=== PATIENT | male | born 1990 | race Caucasian/White ===

== ENCOUNTER 2024-11-18 06:38 | Day surgery (SDC) | payer OTHER ==
[2024-11-18] MEDS: Lactated Ringers 1,000 ML IV SCH (06:59)
[2024-11-18 07:07] LABS: PLATELET COUNT,PLT 202.0 K/uL (130-375); RED BLOOD CELL COUNT 5.08 M/uL (4.14-5.76); WHITE BLOOD CELL COUNT,WBC 4.3 K/uL (3.2-11.0)
[2024-11-18] MEDS ORDERED: Propofol 200 MG/20 ML SDV ONE (07:17)
[2024-11-18] MEDS ORDERED: Glycopyrrolate 0.2 MG/ML 5 ML MDV ONE (07:17)
[2024-11-18] MEDS ORDERED: fentaNYL 250 MCG/5 ML SDV ONE (07:17)
[2024-11-18] MEDS ORDERED: Dexamethasone 4 MG/ML SDV ONE (07:17)
[2024-11-18] MEDS ORDERED: Ondansetron 4 MG/2 ML SDV ONE (07:17)
[2024-11-18 07:27] LABS: A/G RATIO 1.4 (1.2-2.2); ALANINE AMINOTRANSFERASE,ALT 26 U/L (12-78); ASPARTATE AMNIOTRANSFERASE,AST 13 U/L (15-37); BILIRUBIN TOTAL 1.6 mg/dL (0.2-1.0); BLOOD UREA NITROGEN,BUN 11 mg/dL (7-18); CARBON DIOXIDE,CO2 33 mmol/L (21-32); CHLORIDE,CL 103 mmol/L (100-108); CREATININE 0.9 mg/dL (0.8-1.3); EST CRCL DRUG DOSING (CG) 107.01 mL/min; ESTIMATED GFR 114 mL/min (>60); GLUCOSE RANDOM 102 mg/dL (74-106); POTASSIUM,K 3.9 mmol/L (3.6-5.2); PROTEIN TOTAL,TP 7.7 g/dL (6.4-8.2); SODIUM,NA 142 mmol/L (140-148)
[2024-11-18] MEDS: metroNIDAZOLE/Normal Saline 500 MG in Premix Bag 1 BAG IV ONE (07:40)
[2024-11-18] MEDS ORDERED: Ketorolac 30 MG/ML SDV ONE (08:17)
[2024-11-18] MEDS: Lidocaine 1% with EPINEPHrine 1:100,000 50 ML MDV ONE (08:41)
[2024-11-18] MEDS ORDERED: fentaNYL 100 MCG/2 ML SDV ONE (09:02)
[2024-11-18] MEDS ORDERED: Acetaminophen/HYDROcodone 325-5 MG Tab PO ONE (10:30)
[2024-11-18] MEDS: Ondansetron 4 MG/2 ML SDV IVPUSH ONE (10:54)
== END 2024-11-18 13:45 | disposition home or self-care (01) ==
LOC: JP.SDS 06:38
PROVIDERS: ATTEND Surgery
DX: K40.90 Unilateral inguinal hernia, without obstruction or gangrene, not specified as recurrent (principal)
CPT/HCPCS: 36415; 49650; 80053; 85027; C1781; J0169; J0665; J0690; J1100; J1596; J1836; J1885; J2405; J2704; J2710; J2795; J3010; J7120; 00830-QZ; J3490